=== PATIENT | female | born 1990 | race Caucasian/White ===

== ENCOUNTER 2023-10-24 17:36 | Emergency (ER) | payer OTHER, MEDICAID ==
[~2023-10-24] VITALS: Ht 167.6 cm; Wt 81.6 kg
[2023-10-24 18:03] VITALS: BP 116/74; PULSE 74; RESP 18; TEMP 98; O2SAT 98
== END 2023-10-24 20:35 | disposition left against medical advice (07) ==
LOC: MED 17:36
DX: F41.9 Anxiety disorder, unspecified (principal); Z79.899 Other long term (current) drug therapy
CPT/HCPCS: 71045; 93005; 99283